=== PATIENT | male | born 1980 | race Caucasian/White ===

== ENCOUNTER 2017-08-19 08:38 | Emergency (ER) | payer OTHER ==
[~2017-08-19] VITALS: Ht 154.9 cm; Wt 68.0 kg
[~2017-08-19 08:38] MED LIST: BACTRIM DS TAB1 EACH PO; HYDROCODONE-AP1 EAC6 PO; KEFLEX500 MG PO; MEDROLDOSEPACK PO; NORCO 5-325 TA1 EACH PO
[2017-08-19 10:03] LABS: CALCIUM 9.2 mg/dL (8.5-10.1); POTASSIUM 3.7 mmol/L (3.5-5.1)
[2017-08-19] MEDS ORDERED: NORCO 5-325 TA1 EACH PO (10:14)
[2017-08-19] MEDS ORDERED: PREDNISONE 10 M10 M1 PO (10:14)
[2017-08-19 10:31] VITALS: BP 145/93
== END 2017-08-19 10:33 | disposition home or self-care (01) ==
LOC: M.ERS 08:38
PROVIDERS: Emergency Medicine Emergency Medical Services
DX: M10.9 Gout, unspecified (principal); Z88.1 Allergy status to other antibiotic agents; Z88.2 Allergy status to sulfonamides